=== PATIENT | male | born 1990 | race Caucasian/White ===

== ENCOUNTER 2017-02-24 23:58 | Emergency (ER) | payer MEDICAID, OTHER ==
[2017-02-25 00:42] VITALS: BP 105/57
[2017-02-25] MEDS ORDERED: Ketorolac 60 MG/2 ML SDV IM ONE (00:55)
--- NOTE | 2017-02-25 02:03 | ER ---
DATE SEEN: 02/24/2017 TIME SEEN: 0000 hours. CHIEF COMPLAINT: Abdominal pain. HISTORY OF PRESENT ILLNESS: This is a 27-year-old male with insidious onset of right flank and lower abdominal pain, 2 days, severe with no radiation, except to the groin area. No constipation, has mild nausea, normal appetite, high- grade fever yesterday, which has now resolved. REVIEW OF SYSTEMS: All other systems negative. ALLERGIES: No known allergies. 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 PHYSICAL EXAMINATION: GENERAL: He is not in any distress. He has a normal blood pressure and temperature. CHEST: Clear. CARDIOVASCULAR: Normal. ABDOMEN: Soft, nondistended. There is tenderness in the right lower quadrant, right flank, and also in the left lower quadrant. No rebound or rigidity. Bowel sounds are present. No hepatosplenomegaly. LABORATORY DATA: Initial white cell count is 9.4. No left shift. IMAGES: No images available today. CT scan is done. IMPRESSIONS: Abdominal pain. PLAN: I had a long discussion with the mom. The pain at this time is unclear in terms of etiology. Possibilities include appendicitis, gallbladder disease, kidney stone, and constipation. I offered them to go to [place] or [place] for imaging and further treatment. I did not feel the need to call the surgeon given the low white cell count and low Kingston Score, but I did mention to be absolutely sure, they will need the CAT scan. The mom and the patient both agreed to have ketorolac IM as a plan of action and follow up in the morning. If symptoms are not improving to go to the Urgent Care or return to the emergency room. /[id number] SHARON/RAHUL
== END 2017-02-25 01:05 | disposition home or self-care (01) ==
LOC: FB.ED 23:58
DX: R10.31 Right lower quadrant pain (principal); R10.32 Left lower quadrant pain
CPT/HCPCS: 36415; 80053; 81001; 82150; 85025; 96372; 99284; J1885

== ENCOUNTER 2024-10-16 10:13 | Emergency (ER) | payer MEDICARE ==
[2024-10-16 11:09] LABS: BASOPHILS ABSOLUTE AUTO 0.1 x10-3/uL (0.0-0.3); BASOPHILS PERCENT AUTO 0.6 % (0.3-3.8); EOSINOPHILS ABSOLUTE AUTO 0.1 x10-3/uL (0.0-0.6); EOSINOPHILS PERCENT AUTO 1.1 % (0.1-6.8); HEMATOCRIT 46.2 % (38.3-50.1); HEMOGLOBIN 15.7 g/dL (12.9-17.7); LYMPHOCYTES ABSOLUTE AUTO 1.6 x10-3/uL (0.5-4.5); LYMPHOCYTES PERCENT AUTO 18.9 % (15.8-45.3); MEAN CORPUSCULAR HEMOGLOBIN 27.4 pg (27.0-33.3); MEAN CORPUSCULAR VOLUME 80.7 fL (80.8-98.7); MEAN PLATELET VOLUME 7.8 fL (6.7-11.0); MONOCYTES PERCENT AUTO 11.5 % (5.5-15.2); NEUTROPHILS ABSOLUTE AUTO 5.7 x10-3/uL (1.7-6.9); NEUTROPHILS PERCENT AUTO 67.9 % (40.3-71.8); PLATELET COUNT,PLT 174 x10(3)uL (117-477); RED BLOOD CELL COUNT 5.73 x10(6)uL (3.90-5.90); RED CELL DISTRIBUTION WIDTH 13.2 % (12.4-15.0); WHITE BLOOD CELL COUNT,WBC 8.4 x10-3/uL (3.2-10.1)
[2024-10-16 11:11] LABS: BLOOD UREA NITROGEN,BUN 19 mg/dL (7-18); BUN/CREATININE RATIO 23.8 (9-20); CALCIUM 9.7 mg/dL (8.6-10.2); CARBON DIOXIDE,CO2 30 mmol/L (21-32); CHLORIDE,CL 103 mmol/L (100-110); CREATININE 0.8 mg/dL (0.70-1.30); ESTIMATED GFR 119 mL/min (>60); GLUCOSE RANDOM 105 mg/dL (80-116); POTASSIUM,K 4.4 mmol/L (3.5-5.3); SODIUM,NA 142 mmol/L (135-145)
[2024-10-16 11:17] LABS: A/G RATIO 1.7; ALANINE AMINOTRANSFERASE,ALT 19 U/L (12-36); ALBUMIN 4.8 g/dL (3.5-5.2); ALKALINE PHOSPHATASE 76 IU/L (56-112); ASPARTATE AMNIOTRANSFERASE,AST 10 IU/L (5-25); BILIRUBIN TOTAL 0.8 mg/dL (0.1-1.3); PROTEIN TOTAL,TP 7.7 g/dL (6.0-8.0)
[2024-10-16] MEDS: Acetaminophen 500 MG Tab PO ONE (11:41)
== END 2024-10-16 11:46 | disposition home or self-care (01) ==
LOC: FB.ED 10:13
DX: R07.89 Other chest pain (principal); R07.2 Precordial pain
CPT/HCPCS: 36415; 71046; 80053; 84484; 85025; 85379; 86140; 93005; 99285; A9270